=== PATIENT | female | born 1960 | race African-American/Black ===

== ENCOUNTER 2017-03-12 05:58 | Day surgery (SDC) | payer OTHER ==
[~2017-03-12] VITALS: Ht 160 cm; Wt 66.2 kg
--- NOTE | ~2017-03-12 | O ---
[facility] [place] [address] OPERATIVE REPORT Name: INES KENNY Clifton Room #: 150-11 [facility]..#: [id number] Admission: 03/12/17 Attend Phys: Ankush Parmar MD Discharge: Date of : 58 Report #: [id number] THIS REPORT FOR: //name// CC: Ankush Parmar Catina MAGALLON DATE OF SERVICE: 03/12/2017 PREOPERATIVE DIAGNOSIS: Enlarging fibroadenoma, right breast, previous needle biopsy. POSTOPERATIVE DIAGNOSIS: Enlarging fibroadenoma, right breast, previous needle biopsy, final pathology pending. OPERATION: Right breast segmental resection with wire localization and specimen x-ray. SURGEON: Ankush Parmar MD ALLERGIES: General. DESCRIPTION OF PROCEDURE: Under satisfactory general anesthesia and with the patient in the supine position, the right breast was widely prepped with ChloraPrep solution and sterile drapes were applied. The radiologist had already performed wire localization for the biopsy clip and fibroadenoma, which was located laterally in the right breast and fairly superficially. Because the clip was superficial, I elected to remove an ellipse of skin directly over the mass together with the breast tissue widely around the shaft and tip of the guidewire. A segmental resection was thus performed. The specimen was marked with sutures for orientation purposes. Specimen x-ray confirmed removal of the clip and the mass and the guidewire together with normal breast tissue all around. The radiologist was happy with the specimen x-ray and so was I. The specimen was given directly to the pathologist. Palpation from within the breast revealed no other suspicious areas. Hemostasis was obtained using electrocautery and the breast tissue was then reapproximated using interrupted 3-0 Vicryl. The skin was approximated using running 4-0 subcuticular PDS. Sterile dressings were applied and the patient was taken to recovery in satisfactory condition. Estimated blood loss was less than 5 mL. By: [id number] Ankush Parmar MD /nt
--- NOTE | ~2017-03-12 | S ---
[facility] [address] [place] [address] SURGICAL PATH RPT PROCEDURE Name: INES KENNY Room #: 150-11 [facility] M.R.#: [id number] Admission: 03/12/17 Date of : 58 Discharge: Report #: [id number] Path Case #: [id number] PATHOLOGY REPORT DRAFT COLLECTION DATE: 03/12/2017 RECEIVED DATE: 03/12/2017 SPECIMEN(S) RECEIVED: A.Right breast segmental breast resection
[~2017-03-12 05:58] MED LIST: ACETAMINOPHEN325 M1 PO; CIPRO500 MG/5 M PO; FLAGYL 250 MG250 MG PO; FLORANEX TABLE1 EACH PO; HYDROXYZINE HCL25 M1 PO; KEFLEX250 MG PO; LISINOPRIL10 MG PO; LOPRESSOR 50 MG50 M1 PO; MOBIC15 MG PO; NORFLEX100 MG PO; SEROQUEL200 MG PO; TRAMADOL 50 MG50 MG PO; antibiotic
[2017-03-12 07:19] LABS: HEMATOCRIT 41.7 % (37.0-47.0); HEMOGLOBIN 14.4 gm/dL (12.0-15.0); MCH 31.9 pg (26.0-34.0); MCHC 34.5 g/dL (28.0-37.0); MCV 92.6 fL (80.0-100.0); RBC 4.51 mil/uL (4.20-5.00)
[2017-03-12 08:08] LABS: CALCIUM 8.7 mg/dL (8.5-10.1); POTASSIUM 4.3 mmol/L (3.5-5.1)
[2017-03-12 08:13] LABS: ALBUMIN 3.5 g/dL (3.4-5.0); TOTAL BILIRUBIN 0.3 mg/dL (<0.1-1.0); TOTAL PROTEIN 6.8 g/dL (6.4-8.2)
[2017-03-12 11:17] VITALS: BP 181/89
== END 2017-03-12 11:00 ==
LOC: OR 05:58 → TBA 05:59 → OR 09:24
PROVIDERS: Specialist
DX: D24.1 Benign neoplasm of right breast (principal); F17.210 Nicotine dependence, cigarettes, uncomplicated; I10 Essential (primary) hypertension; Z90.49 Acquired absence of other specified parts of digestive tract; J40 Bronchitis, not specified as acute or chronic
CPT/HCPCS: 50010; 50101; 50386; 50403; 56524; 56526; 62110; 62900; 70005